=== PATIENT | male | born 1940 | race Caucasian/White ===

== ENCOUNTER 2016-09-23 08:55 | Outpatient (CLI) | payer OTHER ==
--- NOTE | 2016-09-23 09:44 | DIAGNOSTIC IMAGING REPORT ---
PROCEDURE: US ABDOMEN VASCULAR-AAA INDICATION: Abdominal aortic aneurysm screening. Smoking history. Diabetes. Hypertension. TECHNIQUE: Hill scale and color Doppler sonographic images of the abdomen were obtained. COMPARISON: None. FINDINGS: AORTIC VELOCITY: 132 cm second PROXIMAL ABDOMINAL AORTA: 3.2 x 3.0 cm MIDABDOMINAL AORTA: 2.2 x 1.8 cm DISTAL ABDOMINAL AORTA: 2.2 x 2.0 cm RIGHT COMMON ILIAC ARTERY: 1.4 cm LEFT COMMON ILIAC ARTERY: 1.4 cm IMPRESSION: 1. Normal abdominal aorta. No evidence of aneurysm.
== END 2016-09-23 23:00 ==
LOC: US SRH 08:55
DX: Z13.6 Encounter for screening for cardiovascular disorders (principal); Z87.891 Personal history of nicotine dependence